=== PATIENT | female | born 1975 | race Two or more races ===

== ENCOUNTER 2019-10-15 12:44 | Emergency (ER) | payer MEDICAID ==
[~2019-10-15] VITALS: Ht 144.8 cm; Wt 93.4 kg
[~2019-10-15 12:44] MED LIST: DOCU250C9 PO; ONDA4TAB13 SL; PHEN-583 PO; SULF1TAB23 PO
--- NOTE | 2019-10-15 13:51 | NUR ---
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
[2019-10-15 14:21] VITALS: BP 118/71
--- NOTE | 2019-10-15 14:21 | NUR ---
PT RESTING COMFORTABLY. WATER PROVIDED. SPOUSE AT BEDSIDE. NO OTHER NEEDS AT THIS TIME.
[2019-10-15 14:22] LABS: BASOPHILS # (AUTO) 0.04 x10^3/uL (0-0.1); BASOPHILS % (AUTO) 0 % (0-1); EOSINOPHILS # (AUTO) 0.14 x10^3/uL (0-0.4); EOSINOPHILS % (AUTO) 1 % (1-7); LYMPHOCYTES # (AUTO) 1.57 x10^3/uL (1-3.4); LYMPHOCYTES % (AUTO) 15 % (22-44); MD NO; MEAN CORPUSCULAR HEMOGLOBIN 29.1 pg (27.0-34.8); MEAN CORPUSCULAR HGB CONC 33.3 g/dL (32.4-35.8); MEAN CORPUSCULAR VOLUME 87.5 fL (80-100); MEAN PLATELET VOLUME 9.7 fL (7.4-10.4); MONOCYTES % (AUTO) 6 % (2-9); NEUTROPHILS # (AUTO) 7.89 x10^3/uL (1.8-6.8); NEUTROPHILS % (AUTO) 77 % (42-75); PLATELET COUNT 319 x10^3/uL (130-400); RED BLOOD COUNT 4.46 x10^6/uL (3.82-5.3); RED CELL DISTRIBUTION WIDTH 12.5 % (9.6-15.2)
[2019-10-15 14:35] LABS: ALANINE AMINOTRANSFERASE 75 U/L (12-78); ALBUMIN 3.5 g/dL (3.4-5.0); ANION GAP 6 mmol/L (5-15); CALCIUM 8.3 mg/dL (8.5-10.1); CHLORIDE 108 mmol/L (98-107); CREATININE 0.61 mg/dL (0.55-1.02)
[2019-10-15 14:37] LABS: ALKALINE PHOSPHATASE 72 U/L (45-117); BILIRUBIN,TOTAL 0.3 mg/dL (0.2-1.0); TOTAL PROTEIN 7.1 g/dL (6.4-8.2)
== END 2019-10-15 15:36 | disposition home or self-care (01) ==
LOC: ED 14:46
DX: L29.9 Pruritus, unspecified (principal)
CPT/HCPCS: 36415; 80053; 85025; 99283; J7512